=== PATIENT | female | born 1980 | race Caucasian/White ===

== ENCOUNTER → 2020-12-31 | Day surgery (SDC) | payer OTHER ==
[~2020-12-31] VITALS: Ht 160 cm; Wt 45.8 kg
[~2020-12-31] MED LIST: IBUPROFEN800 M1 PO; LOESTRIN 21 1-1 EACH PO; PEPCID AC20 MG PO; PERCOCET 5-3251 EACH PO; ZOFRAN4 M1 PO
[2020-12-31 07:25] LABS: HCG (URINE) SCREEN NEGATIVE (NEGATIVE)
[2020-12-31 07:52] LABS: HCT 45.3 % (37.0-47.0); HGB 14.7 g/dl (12.5-16.0); MCH 28.2 pg (25.0-31.0); MCHC 32.5 g/dL (32.0-36.0); MCV 86.9 fL (78.0-100.0); MPV 10.5 fL (6.0-9.5); RBC 5.21 M/uL (4.20-5.40); RDW 12.7 % (11.5-14.0); WBC 6.7 K/uL (4.0-10.5)
== END | disposition home or self-care (01) ==
LOC: FAS 07:03
PROVIDERS: Obstetrics & Gynecology
DX: N83.8 Other noninflammatory disorders of ovary, fallopian tube and broad ligament (principal); N93.9 Abnormal uterine and vaginal bleeding, unspecified; N94.6 Dysmenorrhea, unspecified; F41.9 Anxiety disorder, unspecified; N93.0 Postcoital and contact bleeding; B37.3 Candidiasis of vulva and vagina; Z79.899 Other long term (current) drug therapy; Z88.0 Allergy status to penicillin; Z88.2 Allergy status to sulfonamides
CPT/HCPCS: 36415; 84703; J1100; J1170; J1885; J2250; J2405; J2704; J3010; J7120